=== PATIENT | female | born 1970 | race African-American/Black ===

== ENCOUNTER 2019-04-19 14:23 | Emergency (ER) | payer BC, MEDICARE ==
[~2019-04-19] VITALS: Ht 170.2 cm; Wt 95.3 kg
[2019-04-19 14:38] VITALS: BP_SYST 138
--- NOTE | 2019-04-19 15:06 | NUR ---
Patient to ER bed 3 to gown for evaluation. Side rails up. Report given to Justin ROGERS.
--- NOTE | 2019-04-19 15:10 | NUR ---
PT is accompanied by . PT advised they went on a cruise on March 29 and since then she has been feeling sick. PT advised that she has been coughing for several days and its the reason for her chest pain. PT also advised that she has been having a lot of mucus. PT is laying on the gurney not presenting any signs of acute pain.
--- NOTE | 2019-04-19 15:40 | NUR ---
Patient transported to radiology via wheelchair, accompanied by Rad Staff.
--- NOTE | 2019-04-19 15:41 | NUR ---
GLENN Blankenship at bedside examining patient. Addendum: 04/19/19 at 1728 by GLORY MACK Silva
[2019-04-19] MEDS ORDERED: DEXAMETHASONE SOD PHOSPHATE 10 MG/ML VIAL IM ONE (16:00)
[2019-04-19 16:30] VITALS: BP_SYST 138
--- NOTE | 2019-04-19 16:30 | NUR ---
Patient given written and verbal discharge instructions and verbalizes understanding. ER MD discussed with patient the results and treatment provided. Patient in stable condition. ID arm band removed. Rx of given Albuterol. Patient educated on pain management and to follow up with PMD. Pain Scale 0/10. Opportunity for questions provided and answered. Medication side effect fact sheet provided.
== END 2019-04-19 16:30 | disposition home or self-care (01) ==
LOC: SED 14:23
DX: J40 Bronchitis, not specified as acute or chronic (principal)
CPT/HCPCS: 71046; 96372; 99283; J1100

== ENCOUNTER 2021-06-01 19:18 | Emergency (ER) | payer BC ==
[~2021-06-01] VITALS: Ht 170.2 cm; Wt 102.1 kg
[2021-06-01 19:25] VITALS: BP_SYST 149
[2021-06-01] MEDS ORDERED: ONDANSETRON HCL 4 MG/2 ML VIAL IVP ONE ×2 (19:45→21:15)
[2021-06-01] MEDS ORDERED: NACL 0.9% 1,000 ML IV ONE (19:45)
[2021-06-01 19:53] LABS: BASOPHILS % (AUTO) 0.5 % (0.0-2.0); EOSINOPHILS % (AUTO) 0.6 % (0.0-4.0); HEMOGLOBIN 12.4 g/dL (12.0-16.0); LYMPHOCYTES # (AUTO) 0.4 K/uL (1.0-5.5); LYMPHOCYTES % (AUTO) 8.4 % (20.5-51.5); MEAN CORPUSCULAR HEMOGLOBIN 28 pg (27-31); MEAN CORPUSCULAR HGB CONC 33 % (32-36); MEAN CORPUSCULAR VOLUME 86 fL (79.0-98.0); MONOCYTES # (AUTO) 0.5 K/uL (0.0-1.0); MONOCYTES % (AUTO) 11.7 % (1.7-9.3); NEUTROPHILS # (AUTO) 3.3 K/uL (1.8-7.7); NEUTROPHILS % (AUTO) 78.8 % (40.0-70.0); PLATELET COUNT (AUTO) 215 K/uL (130-430); RED BLOOD CELL COUNT(AUTO) 4.44 MIL/uL (4.2-6.2); RED CELL DISTRIBUTION WIDTH 14.4 % (9.0-15.0); WHITE BLOOD COUNT (AUTO) 4.2 K/uL (4.8-10.8)
[2021-06-01 20:01] LABS: CALCIUM 9.7 mg/dL (8.4-11.0); CREATININE 1.21 mg/dL (0.55-1.30); POTASSIUM 4.1 mmol/L (3.5-5.1)
[2021-06-01 20:06] LABS: ALBUMIN 3.8 g/dL (3.4-4.8); TOTAL BILIRUBIN 0.4 mg/dL (0.0-1.0)
[2021-06-01] MEDS ORDERED: METOCLOPRAMIDE HCL 10 MG/2 ML VIAL IVP ONE (21:15)
[2021-06-01 21:42] LABS: BILIRUBIN,URINE NEGATIVE (NEGATIVE); BLOOD, URINE NEGATIVE (NEGATIVE); COLOR,URINE YELLOW (YELLOW); GLUCOSE,URINE NEGATIVE (NEGATIVE); KETONES,URINE NEGATIVE (NEGATIVE); LEUKOCYTE ESTERASE ,URINE NEGATIVE (NEGATIVE); NITRITE, URINE NEGATIVE (NEGATIVE); PROTEIN URINE NEGATIVE (NEGATIVE); UROBILINOGEN,URINE 0.2 (0.2-1.0)
[2021-06-01 22:00] LABS: CLARITY/URINE SLIGHTLY HAZY (CLEAR)
[2021-06-02] MEDS ORDERED: NACL 0.9% 1,000 ML IV ONE (00:45)
[2021-06-02] MEDS ORDERED: PROC10TA13 PO (03:19)
[2021-06-02 03:49] VITALS: BP_SYST 149
== END 2021-06-02 03:49 | disposition home or self-care (01) ==
LOC: SED 19:18
DX: R11.2 Nausea with vomiting, unspecified (principal); Z79.899 Other long term (current) drug therapy
CPT/HCPCS: 36415; 80053; 81003; 83690; 85025; 96361; 96374; 96375; 96376; 99284; J2405; J2765; J7030